=== PATIENT | female | born 1985 | race American Indian/Alaskan Native ===

== ENCOUNTER 2018-07-12 20:07 | Emergency (ER) | payer SELFPAY ==
--- NOTE | 2018-07-12 20:19 | Emergency Department Report ---
Blank Doc - Documentation Documentation: This is a 33-year-old female that presents with abdominal pain with nausea and vomiting. Stated started menstrual cycle Tuesday and since then has pain. Stated that pain that abdominal pain radiates to chest area. Denies any shortness of breathe. This initial assessment diagnostic orders/clinical plan/treatment(s) is/are subject to change based on patient's health status, clinical progression and re- assessment by fellow clinical providers in the ED. Further treatment and workup at subsequent clinical providers discretion. Patient/guardians urged not to elope from ED s their condition may be serious if not clinically assessed and managed. Initial orders include: 1-Patient sent to [facility] for further evaluation and treatment. 2- labs 3- UA 4- EKG
[2018-07-12] MEDS ORDERED: NACL 0.9% 1000 ML 1,000 ML IV ONE (21:33)
[2018-07-12] MEDS ORDERED: ZOFRAN IV ONE (21:33)
--- NOTE | 2018-07-12 21:38 | Emergency Department Report ---
ED Abdominal Pain HPI - General Chief Complaint: Chest Pain Stated Complaint: CHEST PAIN/ABD PAIN Time Seen by Provider: 07/12/18 20:15 Source: patient Mode of arrival: Ambulatory Limitations: No Limitations - History of Present Illness Initial Comments: Patient is a 33 years old female with no significant past medical history. Patient presented to the ER complaining of epigastric abdominal pain was no radiation. Pain associated with his nausea and vomiting. Patient stated that she is unable to keep anything down. Patient denied any history of diarrhea, hematemesis, hematochezia or melena. Patient denied any urinary symptoms. No fever or chills. MD Complaint: abdominal pain -: Last night Location: epigastric Severity: moderate Severity scale (0 -10): 10 Quality: cramping - Related Data Allergies Allergy/AdvReac Type Severity Reaction Status Date / Time ibuprofen Allergy Vomiting Verified 07/12/18 20:14 ED Review of Systems ROS: Stated complaint: CHEST PAIN/ABD PAIN Other details as noted in HPI Comment: All other systems reviewed and negative Constitutional: denies: chills, fever Respiratory: denies: cough, orthopnea, shortness of breath, SOB with exertion, SOB at rest, wheezing Cardiovascular: denies: chest pain, palpitations, dyspnea on exertion Gastrointestinal: abdominal pain, nausea, vomiting. denies: diarrhea, constipation, hematemesis, melena, hematochezia Genitourinary: denies: urgency Neurological: denies: headache, weakness, numbness, paresthesias, confusion ED Past Medical Hx - Past Medical History Previous Medical History?: No - Surgical History Past Surgical History?: No - Social History Smoking Status: Current Some Day Smoker ED Physical Exam - General Limitations: No Limitations General appearance: alert, in no apparent distress - Head Head exam: Present: atraumatic, normocephalic, normal inspection - Eye Eye exam: Present: normal appearance, PERRL - ENT ENT exam: Present: normal exam, normal orophraynx, mucous membranes moist - Neck Neck exam: Present: normal inspection, full ROM. Absent: tenderness, meningismus, lymphadenopathy, thyromegaly - Respiratory Respiratory exam: Present: normal lung sounds bilaterally. Absent: respiratory distress, wheezes, rales, rhonchi, chest wall tenderness, accessory muscle use, decreased breath sounds, prolonged expiratory - Cardiovascular Cardiovascular Exam: Present: regular rate, normal rhythm, normal heart sounds - GI/Abdominal GI/Abdominal exam: Present: soft, tenderness, normal bowel sounds. Absent: distended (left lower quadrant), guarding, rebound, rigid, organomegaly, mass, bruit, pulsatile mass, hernia - Extremities Exam Extremities exam: Present: normal inspection, full ROM, normal capillary refill. Absent: pedal edema, calf tenderness - Back Exam Back exam: Present: normal inspection, full ROM. Absent: tenderness, CVA tenderness (R), CVA tenderness (L), muscle spasm, paraspinal tenderness, vertebral tenderness, rash noted - Neurological Exam Neurological exam: Present: alert, oriented X3, CN II-XII intact, normal gait, reflexes normal - Skin Skin exam: Present: warm, intact, normal color ED Course Vital Signs 07/12/18 07/12/18 07/12/18 20:18 21:29 23:31 Temperature 98 F 99.7 F H Pulse Rate 92 H 96 H 88 Respiratory 16 19 17 Rate Blood Pressure 115/61 106/72 [Left] Blood Pressure 115/65 [Right] O2 Sat by Pulse 100 98 99 Oximetry ED Medical Decision Making - Lab Data Result diagrams: 07/12/18 22:45 07/12/18 22:45 - Radiology Data Radiology results: report reviewed Referring Physician: KENISHA URIARTE Patient Name: SONIA CASTELLANOS Date of : 1985 Sex: Female Report Date: 2018-07-13 Report Status: [place] [address] Cat Scan Report Signed Patient: SONIA CASTELLANOS MR#: [id number] : 1985 Acct:[id number] Age/Sex: 33 / F ADM Date: 07/12/18 Loc: ED Attending Dr: Ordering Physician: KENISHA URIARTE Date of Service: 07/13/18 Procedure(s): CT abdomen pelvis w con Accession Number(s): [id number] cc: KENISHA URIARTE FINAL REPORT PROCEDURE: CT ABDOMEN PELVIS W CON TECHNIQUE: Computerized axial tomography of the abdomen and pelvis was performed after the IV injection of iodinated nonionic contrast. HISTORY: abdominal pain COMPARISON: No prior studies are available for comparison. FINDINGS: Visualized lower thorax: No significant abnormality. Liver: Normal size and attenuation. Spleen: Normal size and attenuation. Gallbladder and biliary system: Normal. Pancreas: Normal. Adrenals: Normal. Kidneys: Both kidneys have normal size. No hydronephrosis. There is a 1 centimeter cyst in the posterior left renal cortex. GI tract: Stomach is normal. The small bowel has a normal caliber without obstruction. The cecum, appendix and colon are normal.. Lymph nodes and mesentery: Normal. Vasculature: Normal. Bladder: Normal. Reproductive organs: There is a large 15.2 centimeter pelvic mass with mixed attenuation including some septated cystic regions. The masses appear to originate off uterus. Multiple fibroids are possible. The ovaries are not identified separate from this mass. . Peritoneum: No free fluid. Musculoskeletal structures: No significant abnormality. Other: None. IMPRESSION: There is a 15 centimeter pelvic mass including multiple areas of mixed attenuation and septated cystic regions, this appears to originate from the uterus. Multiple fibroids are suspected. The ovaries are not clearly visualized. The differential is extensive. Further imaging evaluation with MRI may be appropriate. Transcribed By: [facility] Dictated By: GALDINO DOWNEY MD Electronically Authenticated By: GALDINO DOWNEY MD Signed Date/Time: 07/13/18122 DD/ 0 TD/TT: 07/13/18120 Critical care attestation.: If time is entered above; I have spent that time in minutes in the direct care of this critically ill patient, excluding procedure time. ED Disposition Clinical Impression: Abdominal pain, Fibroid Disposition: - TO HOME OR SELFCARE Is pt being admited?: No Condition: Stable Instructions: Abdominal Pain (ED), Uterine Fibroids (ED) Referrals: GONZALEZ LEW MD [Primary Care Provider] - 3-5 Days [facility] [Provider Group] - 3-5 Days
[2018-07-12] MEDS ORDERED: MORPHINE IV ONE (22:24)
[2018-07-12 22:54] LABS: Basophils % (Auto) 0.4 % (0.0-1.8); Eosinophils # (Auto) 0.1 K/mm3 (0.0-0.4); Eosinophils % (Auto) 0.7 % (0.0-4.3); Hematocrit 35.9 % (30.3-42.9); Hemoglobin 12.5 gm/dl (10.1-14.3); Lymphocytes # (Auto) 1.3 K/mm3 (1.2-5.4); Lymphocytes % (Auto) 13.4 % (13.4-35.0); Mean Corpuscular HGB Conc 35 % (30-34); Mean Corpuscular Volume 88 fl (79-97); Monocytes # (Auto) 0.6 K/mm3 (0.0-0.8); Monocytes % (Auto) 6.3 % (0.0-7.3); Platelet Count 217 K/mm3 (140-440); Red Blood Count 4.07 M/mm3 (3.65-5.03); Red Cell Distribution Width 12.9 % (13.2-15.2)
[2018-07-13 00:33] LABS: Alanine Aminotransferase 13 units/L (7-56); Albumin 4.1 g/dL (3.9-5); BUN/Creatinine Ratio 9; Blood Urea Nitrogen 6 mg/dL (7-17); Calcium 8.9 mg/dL (8.4-10.2); Hemolysis Index 48
[2018-07-13 01:06] LABS: Bilirubin,Urine NEG (Negative); Blood,Urine SM (Negative); Color,Urine Yellow (Yellow); Mucus,Urine FEW /HPF; Protein,Urine <15 mg/dL mg/dL (Negative); Urobilinogen,Urine < 2.0 mg/dL (<2.0)
[2018-07-13] MEDS ORDERED: SUBLIMAZE IV ONE (01:12)
--- NOTE | 2018-07-13 01:23 | Cat Scan Report ---
FINAL REPORT PROCEDURE: CT ABDOMEN PELVIS W CON TECHNIQUE: Computerized axial tomography of the abdomen and pelvis was performed after the IV inject ion of iodinated nonionic contrast. HISTORY: abdominal pain COMPARISON: No prior studies are available for comparison. FINDINGS: Visualized lower thorax: No significant abnormality. Liver: Normal size and attenuation. Spleen: Normal size and attenuation. Gallbladder and biliary system: Normal. Pancreas: Normal. Adrenals: Normal. Kidneys: Both kidneys have normal size. No hydronephrosis. There is a 1 centimeter cyst in the senior product designer ior left renal cortex. GI tract: Stomach is normal. The small bowel has a normal caliber without obstruction. The cecum, crystal endix and colon are normal.. Lymph nodes and mesentery: Normal. Vasculature: Normal. Bladder: Normal. Reproductive organs: There is a large 15.2 centimeter pelvic mass with mixed attenuation including so me septated cystic regions. The masses appear to originate off uterus. Multiple fibroids are possible . The ovaries are not identified separate from this mass. . Peritoneum: No free fluid. Musculoskeletal structures: No significant abnormality. Other: None. IMPRESSION: There is a 15 centimeter pelvic mass including multiple areas of mixed attenuation and septated cysti c regions, this appears to originate from the uterus. Multiple fibroids are suspected. The ovaries ar e not clearly visualized. The differential is extensive. Further imaging evaluation with MRI may be a ppropriate.
[2018-07-13 01:48] VITALS: BP 100/67
== END 2018-07-13 01:51 | disposition home or self-care (01) ==
LOC: ED 20:07
DX: D25.9 Leiomyoma of uterus, unspecified (principal); F17.200 Nicotine dependence, unspecified, uncomplicated
CPT/HCPCS: 36415; 74177; 80053; 81001; 83690; 84703; 85025; 93005; 93010; 96361; 96374; 96375; 99284; J2270; J2405; J3010; J7030; Q9967

== ENCOUNTER 2019-01-27 | Emergency (ER) | payer SELFPAY ==
[2019-01-27 00:14] VITALS: BP 119/75
== END 2019-01-27 00:45 | disposition left against medical advice (07) ==
LOC: ED
DX: R51 Headache (principal); R22.31 Localized swelling, mass and lump, right upper limb; Z53.21 Procedure and treatment not carried out due to patient leaving prior to being seen by health care provider